=== PATIENT | female | born 1940 | race Caucasian/White ===

== ENCOUNTER → 2023-04-26 15:50 | Outpatient (REF) | payer OTHER, SELFPAY ==
[2023-04-26 16:34] LABS: % Basophils 0.4 % (0-2); % Eosinophils 2.7 % (0-6); % Immature Granulocytes 0.4 % (0-0.5); % Lymphocytes 5.8 % (20.5-51.1); % Monocytes 7.7 % (1.7-9.3); Absolute Eosinophils 0.3 10^3/uL (0-0.7); Absolute Lymphocytes 0.6 10^3/uL (1.2-3.4); Absolute Monocytes 0.7 10^3/uL (0.1-0.6); Hematocrit 26.4 % (37.0-47.0); Hemoglobin 8.5 g/dL (12.0-16.0); Mean Corp Hgb Conc. 32.2 g/dL (33.0-37.0); Mean Corpuscular Hgb 32.1 pg (27.0-31.0); Mean Corpuscular Volume 99.6 fL (81.0-99.0); Mean Platelet Volume 10.6 fL (7.4-10.4); Nucleated Red Blood Cells % 0 %; Platelet Count 238 10^3/uL (130-400); Red Blood Cell Count 2.65 10^6/uL (4.20-5.40); Red Cell Dist. Width 13.7 % (11.5-14.5); White Blood Cell Count 9.6 10^3/uL (4.8-10.8)
== END ==
LOC: REG 15:50
PROVIDERS: ATTENDING PHYSICIAN Radiology Radiation Oncology; FAMILY PHYSICIAN Internal Medicine
DX: C79.82 Secondary malignant neoplasm of genital organs (principal)
CPT/HCPCS: 36415; 85025

== ENCOUNTER 2024-05-08 20:05 | Inpatient (IN) | payer OTHER, SELFPAY ==
[2024-05-08 14:37] VITALS: BP 148/66
--- NOTE | 2024-05-08 15:38 | ED.GENMED ---
History of Present Illness
General
Chief Complaint: Dizziness
Source: patient and family (son at bedside)
Exam Limitations: none
Time Seen by Provider: 05/08/24 15:12
Nursing documentation reviewed up to this point in time: agreed with
History of Present Illness
History of Present Illness:
Patient is an 83-year-old female with history hypertension, hyperlipidemia, anal cancer presenting to the emergency department with son from outpatient office for evaluation of dizziness. History somewhat limited with patient due to hearing
impairment. However- patients son is at bedside who is assisting with history.
They state that she was at Dr. Sunshine's office just prior to arrival for an exam of potentially secondary malignancy of vulva when she experienced sudden onset severe dizziness with positional changes. This occurred 3 times in office. Patient
denies any associated nausea, vomiting, chest pain, shortness of breath, back pain. She denies any associated headache or visual changes. At this time�patient is asymptomatic and lying comfortably in bed.
Patient does note that this has happened over the past few months, as well but unable to give much detail.
I did speak with Dr. Sunshine on the phone who states it seems that she was having multiple 'near syncopal events.'Patient has been added onto the OR schedule tomorrow for an exam under anesthesia and he is requesting admission along with cardiac
evaluation/clearance while inpatient.
Review of Systems
Review of Systems
Allergies reviewed?: Yes
All Other Systems: ROS reviewed and negative except as documented in HPI and ROS
Phy Exam
Physical Exam
Physical Exam:
Vitals: Patient's vital signs are stable. Afebrile
General: Patient is well appearing, no acute distress. Nontoxic appearing
Skin: Warm and dry, no rashes or lesions
Head: Normocephalic, atraumatic
Eyes: Sclera nonicteric. EOMs intact. Pupils equal round and reactive to light bilaterally. No nystagmus.
Throat: Protecting airway
Neck: Normal ROM, no cervical spine tenderness, no meningismus
Cardiac: Regular rate and rhythm, no murmurs.
Pulm: Normal respiratory effort, no wheezes, rales, rhonchi heard on exam.
Abdomen: Abdomen soft and nontender.
Extremities: No evidence of cyanosis or edema. Strength 5 out of 5 in upper and lower extremities
Neuro: AAOx3. Fluid speech. No facial droop or asymmetry. Normal [id number]. Sensation fully intact
Psychiatric: Normal affect.
Course
Orders/Labs/Results
Orders:
Orders
05/08/24 15:34
CT Head W/o Iv Contrast Urgent
Comment:
Reason For Exam: acute onset dizziness
05/08/24 15:35
Electrocardiogram (*1) Urgent
Reason for Study: Vertigo / Dizzy
EKG- Treatment ONCE
05/08/24 15:46
Cardiac Monitoring- Treatment ONCE
05/08/24 15:48
Comprehensive Metabolic Panel Urgent
Free T4 Urgent
TSH Reflex To Free T4 Urgent
05/08/24 15:49
Complete Blood Count/With Diff Urgent
05/08/24 15:59
0.9% Sodium Chloride 1000 ml [Nss] 1,000 ml IV BOLUS
05/08/24 17:12
CT Chest/abd/pel W Iv Cont Urgent
Comment: per Dr. Sunshine
Reason For Exam: Pre-op planning
Iohexol [Omnipaque] See Protocol PO NOW STA
05/08/24 19:44
Admit/Transfer Patient As Directed
Co-Sign Provider:
Level of Care: Inpatient admission
Assign to:: Telemetry
Physician / Group: Robert
Diagnosis: Dizziness, Vulvar Cancer
Reason for Telemetry: Syncope
Date to Stop Telemetry: 05/10/24
Time to Stop Telemetry: 11:00
Reason for Hospitalization: Dizziness, Vulvar Cancer
Expected length of stay greater than two midnights?: Yes
ELOS- Estimated Length of Stay in days: 4
I certify the patient meets the requirements for IP care: Yes
PRN Pain Medication Management As Directed
May give lesser potent ordered pain med per pt: Yes
preference::
Protocol:: Medication orders for pain may be administered in a
manner that supports deferring to patient preference
when the pt is:
- Requesting an ordered lesser potent pain medication.
Least to most potent pain medications are defined
as: acetaminophen < NSAID < tramadol < opioids
(morphine, oxycodone, hydromorphone).
- Requesting a lesser dose of the same medication IF
ORDERED.
- Requesting a less intrusive route of administration
if both routes are prescribed by the provider (PO <
IV).
05/08/24 19:46
Code Status As Directed
Resuscitation Status: Full Code
05/08/24 22:25
Acetaminophen [Tylenol] 650 mg PO Q4HPRN PRN
05/08/24 22:25
CARDIOLOGY CONSULT Routine
Consulting Provider: Christian Soliman
Was physician already notified: Yes
Reason for consult: Pre-Op Eval, Near Syncope
[employer] Oncology Consult Routine
Consulting Provider: Sean Sunshine
Was physician already notified: Yes
Reason for consult: Vulvar Cancer
Activity As Directed
Activity Level: Ambulate
With Assistance
EKG with chest pain [ECG as needed] As Directed
ECG as needed for:: Chest Pain
I/O [Intake/ Output] As Directed
Frequency: Per unit guidelines
Orthostatic Vital Signs As Directed
Orthostatic VS Frequency: BID
Pneumatic Compression Sleeves As Directed
Type: Knee high
Vital Signs As Directed
Frequency: Per unit guidelines
Weight As Directed
Frequency: Daily
Oxygen Therapy [O2 Therapy] [RESP] Routine
Titrate/Wean O2 to maintain O2 sat greater than (%): 94
Ot Eval And Treat Routine
PT Consult [Pt Eval And Treat] Routine
Activity Level: Ambulate
With Assistance
DX Deep Vein Thrombosis Video Routine
05/09/24 Breakfast
NPO
Allow oral meds: Yes
Allow clear liquids: Sips of Clears
NPO for procedure after (time): Midnight
Basic Metabolic Panel IN AM
Complete Blood Count/No Diff IN AM
PTT IN AM
Prothrombin Time IN AM
Levothyroxine [Synthroid] 100 mcg PO DAILY@0600
05/09/24 08:00
Atorvastatin [Lipitor] 40 mg PO DAILY
Losartan [Cozaar] 100 mg PO DAILY
05/10/24 11:00
DC Protocol for Telemetry ONCE
Abnormal Lab Results
05/08/24 05/08/24
15:48 15:49
RBC 3.57 L 10^6/uL
(4.20-5.40)
Hgb 11.4 L g/dL
(12.0-16.0)
Hct 35.6 L %
(37.0-47.0)
MCV 99.7 H fL
(81.0-99.0)
MCH 31.9 H pg
(27.0-31.0)
MCHC 32.0 L g/dL
(33.0-37.0)
MPV 10.9 H fL
(7.4-10.4)
Absolute Lymphs (auto) 0.6 L 10^3/uL
(1.2-3.4)
Neutrophils % 82.2 H %
(42.2-75.2)
Lymphocytes % 7.7 L %
(20.5-51.1)
Glucose 115 H mg/dl
(70-99)
TSH (Reflex) 24.30 H uIU/ml
(0.47-4.68)
Free T4 0.33 L ng/dl
(0.78-2.19)
05/08/24 15:49
05/08/24 15:48
Vital Signs
Initial and Last Documented VS:
Initial Vital Signs
Temp Pulse Resp BP Pulse Ox
97.7 F 82 20 148/66 100
05/08/24 14:37 05/08/24 14:37 05/08/24 14:37 05/08/24 14:37 05/08/24 14:37
Last Documented Vital Signs
Temp Pulse Resp BP Pulse Ox
98.2 F 67 20 159/77 100
05/08/24 22:43 05/08/24 22:43 05/08/24 22:43 05/08/24 22:43 05/08/24 22:43
MDM/Problems Addressed
Differential Diagnosis Includes:
Not limited to: BPPV, orthostatic hypotension, electrolyte imbalance, cardiac arrhythmia, CVA, etc.
MDM/Problems Addressed:
83-year-old female presenting with postural dizziness and near syncope while at doctor's office outpatient. Patient appears asymptomatic on initial evaluation. She denies any syncopal event or associated chest pain, shortness of breath, headache.
Patient is mildly hypertensive, otherwise stable vital signs. Physical exam as above. She is very well and comfortable appearing. Cardio/pulmonary assessment unremarkable. She has normal neurologic examination. However�she was unable to sit up
without significant dizziness. Symptoms seem very positional in nature. Will obtain labs, EKG, head CT. Will give IV fluids. Will contact Dr. Sunshine for further input on what occurred at office.
Update: Did speak with Dr. Sunshine on phone. He reports multiple episodes of dizziness with positional changes while in office. Patient being worked up for possible secondary malignancy of vulva with history of anal cancer. Dr. Sunshine would like
patient to be admitted overnight tonight with cardiology clearance and plan for OR tomorrow for exam under anesthesia. Will plan for admission pending workup in ED.
Update: EKG without acute changes. Labs reviewed. TSH elevated with low free T4. On discussion with patient and family�it appears she does have history of hypothyroidism and is unsure if she has been taking her medication. Otherwise labs without
clinically significant abnormalities headache without acute findings. Was able to get patient up and walking after liter of fluids with significant improvement in symptoms, although she does still remain mildly unsteady on her feet.
Ultimately�suspect orthostatic dizziness versus vasovagal symptoms at this time. Plan for admission for further workup with [employer]/ONC and OR tomorrow for exam under anesthesia. Patient seen with attending physician.
Chronic conditions affecting care:
Hypertension, Hyperlipidemia, history of anal cancer
Acute Exacerbation and/or Progression of Chronic Illness:
Acutely hypertensive
*Radiology
Radiology exam reviewed: preliminary read by ED provider and radiology read reviewed
*Pulse Oximetry
Patient hypoxic: no
*EKG
Interpreted by ED Provider?: Yes
Interpretation: abnormal
Comparison EKG: no changes
Heart Rate: 71
Rate: normal
Rhythm: sinus
[place]: left axis deviation
Interval: normal interval
QRS Pattern: low voltage
Ischemia: no ischemia
*Critical Care Note
Total Time (30-74mins, 75-104mins- exclusive of procedures): Not Applicable
Patient Management
Discussion with other providers: Hospitalist and [place] (Case discussed w/ community center director/onc Dr. Neil)
Escalation/DeEscalation of care consider admission/obs:
Admit�plan for OR tomorrow for exam under anesthesia
ED Attending Note
-
Portions of this chart may have been created with voice recognition software.� Occasional wrong word or��sound alike� substitutions may have occurred due to the inherent limitations of voice recognition software.
Discharge Plan
Departure
Patient Disposition: Admit
Date of Disposition: 05/08/24
Time of Disposition: 18:36
Presentation/result/management discussed w/ accepting MD/DO: Hospitalist
Discharge Problem:
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
Interventions
Interventions:
*Risk Screen - Suicide Last Done: 05/08/24 14:44
*General Assessment Last Done: 05/08/24 14:37
*Neglect/Abuse Screening Last Done: 05/08/24 14:44
*ED- Fall Risk Assessment Last Done: 05/08/24 17:00
*ED COVID-19 Vaccine History Last Done: 05/08/24 19:00
*Nursing Disposition Last Done: 05/08/24 22:31
ED- Neurological Assessment Last Done: 05/08/24 17:00
ED Swallowing Screen Last Done: 05/08/24 17:00
Discharge Date and Time
Discharge Date/Time: 05/08/24 22:32
[2024-05-08 15:49] VITALS: BP 135/69
[2024-05-08 15:55] VITALS: BP 142/69
[2024-05-08 16:00] VITALS: BP 131/61
[2024-05-08 16:07] LABS: % Basophils 0.5 % (0-2); % Eosinophils 1.9 % (0-6); % Immature Granulocytes 0.5 % (0-0.5); % Lymphocytes 7.7 % (20.5-51.1); % Monocytes 7.2 % (1.7-9.3); % Neutrophils 82.2 % (42.2-75.2); Absolute Eosinophils 0.2 10^3/uL (0-0.7); Absolute Lymphocytes 0.6 10^3/uL (1.2-3.4); Absolute Monocytes 0.6 10^3/uL (0.1-0.6); Absolute Neutrophils 6.5 10^3/uL (1.4-6.5); Hematocrit 35.6 % (37.0-47.0); Hemoglobin 11.4 g/dL (12.0-16.0); Mean Corpuscular Hgb 31.9 pg (27.0-31.0); Mean Corpuscular Volume 99.7 fL (81.0-99.0); Mean Platelet Volume 10.9 fL (7.4-10.4); Nucleated Red Blood Cells % 0 %; Platelet Count 189 10^3/uL (130-400); Red Blood Cell Count 3.57 10^6/uL (4.20-5.40); Red Cell Dist. Width 14.5 % (11.5-14.5); White Blood Cell Count 7.9 10^3/uL (4.8-10.8)
[2024-05-08 16:12] LABS: Glucose - Point of Care 82 mg/dl (70-99)
[2024-05-08] MEDS: NSS 1000 IV (16:17)
[2024-05-08 16:22] LABS: ALT (SGPT) 14 U/L (0-35); AST (SGOT) 19 U/L (14-36); Albumin 3.7 g/dl (3.5-5.0); Alkaline Phosphatase 101 U/L (38-126); Blood Urea Nitrogen 16 mg/dl (7-17); Carbon Dioxide 27 mmol/L (22-30); Chloride 107 mmol/L (98-107); Glucose 115 mg/dl (70-99); Sodium 144 mmol/L (135-145); Total Bilirubin 0.7 mg/dl (0.2-1.3); Total Protein 6.3 g/dl (6.3-8.2); eGFR > 60.00
[2024-05-08 17:21] LABS: Free T4 0.33 ng/dl (0.78-2.19)
[2024-05-08] MEDS: OMNIPAQUE 50 ML PO (17:36)
--- NOTE | 2024-05-08 18:27 | W.CON.GYNONC ---
Chief Complaint
-
vulvar pain/mass
History of Present Illness
This�is�an�83�year�old�[id number]�who�is�sent�to�me�by�Dr.�Savanah�in�colorectal�surgery.�She�has�a�prior�history�of�squamous
cell�carcinoma�of�the�anus.�Patient�has�been�experiencing�pain�involving�the�vulvar�region,�in�addition�she�has�been�having
discharge.�Patient�was�seen�by�Dr.�Adan�in�February�202�where�exam�revealed�areas�of�induration�extending�to�the�anus�with
multiple�foci�of�skin�breakdown�and�ulceration.�She�was�sent�to�colorectal�surgery�for�evaluation.�They�noted�presence�of�a�lesion that�was�concerning�for�malignancy�and�the�patient�is�sent�to�us�for�further�evaluation
Oncology�History: In��late��November��2018��she��was��evaluated��at[facility],�and��biopsy��reportedly��showed��squamous��cell�
carcinoma��consistent��with��anal��margin��carcinoma.�� (I��do��not��have��those��results��to�review��at��this��time,��though��the��pathology��report��has��been��requested.)��
She��was��referred� to��plastic��surgery,��who��referred��her��to�colorectal��surgery.��She��met��with��Dr.��Savanah,��who��performed��colonoscopy��on�
.��This��revealed��a��left��anterior��anal�margin��mass,��diverticulosis��in��the��sigmoid��colon,��a��3��mm��polyp��in�
the��ascending��colon��and��a��3��mm��polyp��in��the��descending��colon.�Both��polyps��were��tubular��adenomas.��She��underwent�
staging��PET��scan��along��with��diagnostic��contrastinduced��CT��scans,��revealing�fairly��intense��radiotracer��accumulation��in��the�
left��perianal��soft��tissue,��and��a��mildly��FDG��avid��presumed��lymph��node��in��the��mesentery�of��the��left��abdomen,��which�
would��be��a��fairly��unusual��site��for��metastasis.�Her��case��was��discussed��at��our��multidisciplinary��cancer��conference.��A�
decision��was��made��that��surgery��was��likely��an��inferior��option�to��combined��modality��chemotherapy��and��radiation��therapy.�
She��completed��chemo��radiation��in��May��2020.�Recall��that��she��underwent��excisional��surgical��biopsy��of��a��mesenteric� mass��in��[place]��2022��and��pathology��revealed��a��benign�fibroinflammatory��process,��consistent��with��mesenteric�
panniculitis/retroperitoneal��fibrosis. In�February�2024�patient�was�sent�to�Dr.�Smith,�on�his�exam�he�notes�a�7�cm�right�vulvar�exophytic�lesion�with�areas�of necrosis�and�bleeding,�this�does�not�occlude�the�urethra.
Patient�had�already�opted�for�palliative�radiation�therapy.�Vulvar�biopsy�was�done�at[facility],�a�1�x�1�cm�area�was
biopsied�which�revealed�invasive�moderately�differentiated�squamous�cell�carcinoma.�For�this�the�patient�received�3000�cGy�over�10 fraction�starting�March�1.
Past�medical�history�significant�for�anemia,�cancer�of�anus,�hyperlipidemia,�hypertension
Past�surgical�history�includes�appendectomy,�cataract�extraction,��section,�toe�surgery,�tonsillectomy,�partial�vulvectomy
Allergies�include�KARINA�inhibitors�causing�cough,�hydrocodone,�polyethylene�glycol,�sulfa,�sulfur,�triamcinolone,�azithromycin, nystatin,�penicillins
Social�history�patient�is�,�patient�denies�tobacco�use�vaping�drug�use.
Meds:
Calcium�with�Vit�D dose�unknown�1 p.o.�twice�a�day (BID)
Fish�Oil�1,000�mg�(120�mg�180�mg)�capsule 4�p.o.�q.�day
furosemide�20�mg�tablet 1/2�p.o.�q.�day
Lipitor�40�mg�tablet 1�p.o.�q.�day
losartan�100�mg�tablet 1�p.o.�q.�day
multivitamin�oral 1�p.o.�q.�day
[place]�3�350�mg�235�mg�90�mg�597�mg capsule,delayed�release 4�p.o.�q.�day
Synthroid�100�mcg�tablet 1�p.o.�q.�day
Vitamin�B�12�1,000�mcg�tablet 1�p.o.�q.�day
Vitamin�C�500�mg�tablet 1�p.o.�q.�day
Vitamin�D3�50�mcg�(2,000�unit)�capsule 1�p.o.�q.�day
vitamin�E�400�unit�capsule 1�p.o.�q.�day
Medical History
Allergies
Allergies reflect [facility]
KARINA Inhibitors Allergy (Verified 05/08/24 14:41)
cough
apple Allergy (Verified 05/08/24 14:41)
Hives to Apple Cider
azithromycin [From Zithromax Z-Yony] Allergy (Verified 05/08/24 14:41)
Pharmacy to Review
hydrocodone [From Vicodin] Allergy (Verified 05/08/24 14:41)
GI problems
nystatin Allergy (Verified 05/08/24 14:41)
Rash
Penicillins Allergy (Verified 05/08/24 14:41)
Rash
perfume Allergy (Verified 05/08/24 14:41)
Anaphylaxis to Bounce Dryer Sheets
Sulfa (Sulfonamide Antibiotics) Allergy (Verified 05/08/24 14:41)
Hives
triamcinolone Allergy (Verified 05/08/24 14:41)
Rash
Physical Exam
Vital Signs / I&O
Vitals
Temp Pulse Resp BP Pulse Ox
97.7 F 77 23 142/69 100
05/08/24 14:37 05/08/24 15:55 05/08/24 15:55 05/08/24 15:55 05/08/24 15:55
Physical Exam
Pelvic�Examination: External:�There�is�evidence�of�tumor�involving�clitoris�at�least�3�cm�in�size�with�extension�along�right�and�left�labia�majora�extending
to�vaginal�introitus.�It�is�unclear�whether�the�urethra�or�vagina�is�involved,�exam�is�very�painful�for�the�patient�and�had�to�be terminated�in�the�office.�The�tumor�has�a�odor�associated�with�it.�It�is�friable�and�can�bleed�upon�touching.
Vagina:�Unable�to�examine
Cervix:�Unable�to�examine
Uterus:�Did�not�exam
Adnexa:�Did�not�examine
RVE:�On�visual�exam�of�the�anus�I�did�not�see�any�evidence�of�masses,�there�is�radiation�changes�surrounding�the�anal�canal
General:�Well�developed,�well�nourished�patient.Chronically�ill�appearing.�
Patient�appears�older�than�state�age.
Neck:�No�thyromegaly.�No�cervical�lymphadenopathy.
Lungs:�Clear�to�auscultation.�Good�air�movement�bilaterally.
Cardiac:�Regular�rate.�Regular�rhythm.�No�murmurs�appreciated.
Abdomen:�Abdomen�is�soft.�Non�tender�to�palpation.�Non�distended.
Extremities:�No�edema. Hematologic/Lymphatic:�No�palpable�lymphadenopathy.
Musculoskeletal:�Normal�range�of�motion.�Strength�and�Tone�are�normal.
Skin:Non�jaundiced.�No�petechia.�No�purpura.
Neurologic:�Speech�is�fluent.�Normal�gait�and�station.�Cranial�nerves�intact.
Results
-
05/08/24 15:49
05/08/24 15:48
[facility]
[address] [place] [id number]
[phone]
Patient Name: SANGITA GUSMAN
: 1940
Unit Number: [id number]
Age/Sex: 83/F
Patient
Location: PET
Order Provider: Stephani Arellano MD
Exam Service Date: 04/05/24

PET Scan Report
SignedOrder #:[id number]
Exams: PT Pet Wbi W/CT Skull-thigh
CPT: 11964
Procedure: PET/CT SKULL-THIGH
IMPRESSION:
1. Large thick band of RESIDUAL MALIGNANCY in the INFERIOR PERINEUM extending from the vagina to the anus which appears increased in AP dimension, but decreased in FDG uptake compared with the 03/15/2023 examination.
2. No evidence for new distant FDG avid metastatic disease.
CLINICAL INDICATION: 83-year-old woman with anal cancer (treated with chemotherapy and radiation therapy in 2019) and vulvar cancer (treated with radiation therapy in April 2023). The patient is undergoing a PET/CT examination for restaging
(subsequent treatment strategy).
TECHNIQUE: A PET/CT examination was performed following the intravenous injection of 10.4 mCi F-18 FDG in the right antecubital fossa at 11:08 AM on 04/05/2024. Images were acquired from the level of the skull base to the level of the mid thighs. The
blood glucose level at the time of injection measured 81 mg/dL. The radiopharmaceutical uptake time measures 67 minutes. Axial, sagittal, and coronal fused reformatted images were obtained. Low-dose CT images were acquired for attenuation correction
purposes only. Automatic exposure control radiation dose reduction technology was utilized.
SUV Measurement Type: SUVmax
Normalization Method: BMI
COMPARISON: Comparison is made with a prior PET/CT examination performed 03/15/2023.
FINDINGS:
HEAD and NECK:
There is no abnormal increased FDG uptake in the neck to suggest FDG avid metastatic disease.
CHEST:
MEDIASTINUM: Mediastinal Blood Pool Reference Background Measurement: SUV max 2.6
The heart is mildly enlarged. There is a large amount of calcification in the mitral annulus. There is mild calcification in the aortic valve. There is moderate calcific atherosclerotic plaque in the coronary arteries. There is severe calcific
atherosclerotic plaque in the thoracic aorta. There is no pericardial effusion. There is no abnormal increased FDG uptake in mediastinal, hilar, supraclavicular, or axillary lymph nodes to suggest FDG avid dutch metastatic disease.
LUNGS: There is no abnormal increased FDG uptake in the lungs to suggest FDG avid pulmonary metastatic disease. There is a mild amount of subpleural scarring and subsegmental atelectasis in the basilar segments of the left lower lobe. There is no
pleural effusion or pneumothorax.
ABDOMEN and PELVIS: Liver Reference Background Measurement: SUV max 3.6
There is no abnormal increased FDG uptake in the liver. There is severe calcific atherosclerotic plaque in the abdominal aorta and common iliac arteries. There is very severe calcific atherosclerotic plaque in the superior mesenteric artery. There
is severe calcific atherosclerotic plaque in both proximal renal arteries. There are multiple parapelvic cysts in the left kidney. There is mild bilateral renal cortical volume loss. There is a 5 mm nonobstructing intrarenal calculus in the left
kidney.
There is a 2.2 x 4.4 cm partially calcified mass in the small bowel mesentery measuring SUV max 2.8 (previously SUV max 2.9). There is a moderate amount of fecal material in the cecum, ascending colon, transverse colon, and descending colon. There
is severe diverticulosis throughout the sigmoid colon. There is a moderate to large amount of fecal material in the rectum.
There is a 4.2 x 5.1 cm cyst in the right ovary measuring simple Hounsfield units in attenuation. There is no peritoneal fluid in the pelvis.
There is a large thick band of malignant soft tissue in the inferior perineum extending from the vagina to the anus measuring 9.9 x 2.3 x 4.6 cm in AP, transverse, and craniocaudal dimensions and SUV max 17.0 (previously SUV max 31.3).
SKELETON:
The bones appear severely osteoporotic. There is no abnormal increased FDG uptake in the skeleton to suggest FDG avid osseous metastatic disease. There is a severely exaggerated lower thoracic kyphosis. There is severe discogenic degenerative
disease at T11/T12, T12/L1, L1/L2, and L2/L3. There is severe discogenic degenerative disease at L5/S1.
In accordance with Act 112, known as the Patient Test Results Information Act, a letter will be sent to the patient which notifies the patient that a significant abnormality may exist. The letter will be sent within approximately 20 days of the
date the results were sent to the ordering health care practitioner.
Electronically signed by Jones Blandon MD, 04/05/2024 5:28 PM
Dictated By: Barber CORRAL,Jones Dozier.
Dictated Date & Time: 04/05/24 0459
Impression / Plan
-
During the visit today the patient had multiple episodes of syncope in the office, she never lost consciousness but she was unable
to stand up and unfortunately this necessitated transfer to a wheelchair and I send her to the emergency room for further evaluation.
During my brief examination I note that the patient has an extensive tumor involving bilateral labia and clitoris that is consistent with
squamous cell carcinoma. It is unclear to me as whether the vagina is involved with this. Patient requires an exam under anesthesia
for determination of next step for treatment
She has a very poor performance status based on evaluation today, we need to ask cardiology for a more formal evaluation including
ECG, echocardiogram.
At the very least she will need to undergo complete radical vulvectomy and will require bilateral gracilis flaps to fill the defect. If the
disease extends in the vagina or involve the urethra she may require exenterative procedure, i.e. removal of bladder urethra vagina
uterus cervix rectum with colostomy and urostomy. I am not certain that at her age of 83 with her current performance status she
can undergo the surgery this would require a very detailed conversation.
My proposal is to do an exam under anesthesia to gain a better appreciation of the extent of disease and document recurrent
disease with biopsies.
We can have further conversation about next steps after the biopsies are completed.
Keep patient NPO
Obtain CT CAP with IV and po contrast
Cardiology consult for pre op clearance
--- NOTE | 2024-05-08 19:54 | HPS.HSE ---
Family Physician
-
Family Physician: Tosin Moore
Chief Complaint
-
Dizziness
History of Present Illness
Patient is an 83y F with PMH significant for squamous cell carcinoma of the anus who presents to ED for evaluation of dizziness. Patient was being evaluated at PAPER REWINDER OPERATOR-Onc office today for vulvar inflammation / lesions. She had significant
discomfort during the exam and complained of dizziness / was yelling out in pain. Patient did not lose consciousness. She did not fall or suffer any injury or trauma. Patient was sent to the ED for further evaluation.
Patient has been increasingly confused over the past several months according to her daughter. She manages her own medications and family is not at all certain that she has been taking them as prescribed.
In the ED, patient has poor recall of events at the office today which led to her presentation. She denies any pain, dizziness, chest pain, dyspnea, etc at present.
Medical History
Past Medical History
Past Medical History: Reports Other
Additional Past Medical History:
Squamous Cell Carcinoma (Anus) - Chemo, XRT 2019, XRT 2023
Hypothyroidism
Hypertension
Senile Dementia
Past Surgical History: Reports Other
Additional Past Surgical History:
T&A
Cataracts
Tubal Ligation
Appendectomy
Pilonidal Cyst
Ex Lap / Resection of Mesenteric Mass (benign) - 2021
Social History
Tobacco: Non-smoker
Alcohol: None
Drug: None
Living: With Family (son)
Family History
Family History: Not pertinent
Allergies / Home Medications
Allergies reflects when Allergies were last updated in [facility].
Home Medications with original date entered in [facility]
Allergy/Medication List:
Allergies
Allergy/AdvReac Type Severity Reaction Status Date / Time
KARINA Inhibitors Allergy cough Verified 05/08/24 14:41
apple Allergy Hives to Verified 05/08/24 14:41
Apple Cider
azithromycin Allergy Pharmacy Verified 05/08/24 14:41
[From Zithromax Z-Yony] to Review
hydrocodone [From Vicodin] Allergy GI problems Verified 05/08/24 14:41
nystatin Allergy Rash Verified 05/08/24 14:41
Penicillins Allergy Rash Verified 05/08/24 14:41
perfume Allergy Anaphylaxis Verified 05/08/24 14:41
to Bounce
Dryer
Sheets
Sulfa (Sulfonamide Allergy Hives Verified 05/08/24 14:41
Antibiotics)
triamcinolone Allergy Rash Verified 05/08/24 14:41
Home Medications
aspirin 81 mg tablet,delayed release (Adult Aspirin Regimen) 81 mg PO MOWEFR Blood clot prevention/tx 05/10/19
losartan 100 mg tablet (Cozaar) 100 mg PO DAILY Blood pressure 05/10/19
cyanocobalamin (vitamin B-12) 1,000 mcg tablet 1,000 mcg PO DAILY Supplement 03/04/20
cholecalciferol (vitamin D3) 50 mcg (2,000 unit) capsule (Vitamin D3) 50 mcg PO DAILY Supplement 08/28/21
ascorbic acid (vitamin C) 500 mg tablet (Vitamin C) 500 mg PO DAILY Supplement 10/16/21
atorvastatin 40 mg tablet (Lipitor) 40 mg PO DAILY High cholesterol 10/16/21
levothyroxine 100 mcg tablet (Synthroid) 100 mcg PO DAILY Thyroid 10/16/21
vitamin E 268 mg (400 unit) capsule 268 mg PO DAILY Supplement ##0 10/16/21
therapeutic multivitamin 1 tab PO DAILY 05/08/24
Review of Systems
-
History Source: Patient
A 12 point ROS was completed and negative except as noted: Yes
Constitutional: Denies Fever or Chills
EENT: Denies Sore Throat
Respiratory: Denies Cough or Trouble Breathing
Cardiac: Denies Chest Pain, Palpitations or Syncope
Abdomen/GI: Denies Abdominal Pain, Nausea, Vomiting or Diarrhea
: Reports Other (Vulvar pain, discharge.)
Musculoskeletal: Denies Joint Pain or Edema
Neurological: Reports Dizzy; Denies Headache
Psych: Denies Depression or Anxiety
Physical Exam
Vital Signs
Vital Signs
Temp Pulse Resp BP Pulse Ox
97.7 F 71 22 131/61 98
05/08/24 14:37 05/08/24 19:00 05/08/24 19:00 05/08/24 16:00 05/08/24 16:45
Physical Exam
General: Other (83y F in no acute distress.)
HEENT: Moist mucous membranes and PERRLA
Respiratory: Clear; No Wheezes, Rales or Rhonchi
Cardiac: S1/S2 and Regular Rhythm; No Murmur
GI: Soft, Non Tender, Non Distended and Normal Bowel Sounds
Musculoskeletal: No Clubbing, No Cyanosis and No Edema
Neuro: Awake and Alert; No Oriented
Laboratory Results
-
05/08/24 15:49
05/08/24 15:48
Laboratory Results
Total Bilirubin 0.7 mg/dl (0.2-1.3) 05/08/24 15:48
AST 19 U/L (14-36) 05/08/24 15:48
ALT 14 U/L (0-35) 05/08/24 15:48
Alkaline Phosphatase 101 U/L (38-126) 05/08/24 15:48
Impression/Plan
-
A/P: Patient is an 83y F with PMH significant for squamous cell cancer of the anus who presents to ED for evaluation of dizziness at physician's office this afternoon.
Near-Syncope
- Admit for further evaluation and treatment.
- Suspect vasovagal episodes due to pain.
- EKG / tele unremarkable in the ED.
- Asymptomatic at present.
- PT / OT eval for gait safety / vestibular assessment.
- PAPER REWINDER OPERATOR-Onc requested Cardiology evaluation for pre-op assessment.
- Monitor for any recurrent symptoms.
Squamous Cell Cancer
Vulvar Lesion
- Patient initially diagnosed in 2019 and underwent chemo and XRT.
- Had mesenteric mass resected in 2021 which was ultimately benign.
- Repeat XRT in 2023 for recurrence.
- Now with inflamed, friable vulvar lesions.
- PAPER REWINDER OPERATOR-Onc eval as noted above.
- CT this evening for further evaluation.
- Plan for exam under anesthesia in the AM and possible additional surgery later in the week.
Benign Hypertension
- Stable. Continue losartan with holding parameters.
Hypothyroidism
- TFTs suggest under-replacement.
- Given concerns regarding med compliance - not clear that patient requires dose adjustment.
- Resume usual 100mcg dose for now.
- Repeat TFTs in 4-6 weeks.
Memory Impairment
- Family reports gradual cognitive decline over the past few months.
- Concerns re: med compliance, eating / drinking, etc.
- Follow for changes during stay and consider placement / home assistance options at discharge.
DVT Prophylaxis: SCDs
Code Status: Full
[2024-05-08 22:00] VITALS: BP 141/60
--- NOTE | 2024-05-08 22:40 | PTCARENOTE ---
Rec'd from ED awake, alert, & pleasant. Forgetful & disoriented to place and time. Cooperative. Able to walk from hallway to bed w/assist of 1. Some back pain upon sitting up, which daughter states is chronic. Bed alarm applied to bed. Pt instructed
on use of call woodard and states understanding, however needs reminders of location of same.
[2024-05-08 22:42] VITALS: BMI 31.4
[2024-05-08 22:43] VITALS: BP 159/77
[2024-05-09] VITALS (9 sets, daily range): BP systolic 125–158; BP diastolic 62–106; BMI 31.5
[2024-05-09] MEDS: LR 1000 IV ×2 (00:01→09:02)
[2024-05-09] MEDS: SYNTHROID 100 MCG PO (04:02)
[2024-05-09 06:49] LABS: Hematocrit 33.3 % (37.0-47.0); Hemoglobin 10.9 g/dL (12.0-16.0); Mean Corp Hgb Conc. 32.7 g/dL (33.0-37.0); Mean Corpuscular Hgb 31.9 pg (27.0-31.0); Mean Corpuscular Volume 97.4 fL (81.0-99.0); Mean Platelet Volume 11.2 fL (7.4-10.4); Platelet Count 175 10^3/uL (130-400); Red Blood Cell Count 3.42 10^6/uL (4.20-5.40); Red Cell Dist. Width 14.4 % (11.5-14.5); White Blood Cell Count 8.5 10^3/uL (4.8-10.8)
[2024-05-09 06:54] LABS: INR 1.08; PT 14.4 Sec (11.4-14.6)
[2024-05-09 07:08] LABS: Blood Urea Nitrogen 12 mg/dl (7-17); Calcium 8.7 mg/dl (8.4-10.2); Carbon Dioxide 26 mmol/L (22-30); Chloride 108 mmol/L (98-107); Estimated Creatinine Clearance 53 ml/min; Glucose 81 mg/dl (70-99); Potassium 4.2 mmol/L (3.5-5.1); Sodium 140 mmol/L (135-145); eGFR > 60.00
--- NOTE | 2024-05-09 08:44 | W.PN.HOSP.TC ---
Today's Communication/Plan
-
see PN
Assessment / Plan
Assessment / Plan
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
BELT BUCKLE MAKER exam under anasthesia. No LOC reported, but dizziness while standing.
A/P:
#Valvular squamous cell CA
Needs additional examination under anasthesia
Oncology BELT BUCKLE MAKER consult
Needs cardiology eval preOP
#Dizziness
Telemetry with no significant arrhythmia
PT/OT
Echo
Head CT unremarkable
carotid US
EKG with no TWI. poor R progression
#anemia
anemia w/u
#HLD
#Essential HTN
#ASCVD
#Hypothyroidism
#Dementia
TSH significantly elevated, but questionable compliance as per admission note, reasonable to increase Synthroid to 112mcg and repeat TFT in 2-3 weeks
cont rest of meds
Furosemide on hold on admission - follow volume status, stop IVF
Unclear why ASA three time per week
DVT ppx hep
Full code
I have spent at least 58min reviewing chart, test results, communication with consultantants and providing direct patient care
Anticipated Discharge: 24 - 48 hours
Subjective/Interval History
-
Date of Service: May 09, 2024
Objective Data
-
Labs:
Laboratory Results
05/09/24
05:50
WBC 8.5
Hgb 10.9 L
Hct 33.3 L
Plt Count 175
PT 14.4
INR 1.08
APTT 32.0
Sodium 140
Potassium 4.2
Chloride 108 H
Carbon Dioxide 26
BUN 12
Creatinine 0.6
Glucose 81
Calcium 8.7
Vital Signs:
Vital Signs
Temp Pulse Resp BP Pulse Ox
97.8 F 71 18 146/77 99
05/09/24 07:42 05/09/24 07:42 05/09/24 07:42 05/09/24 07:42 05/09/24 07:42
I&O
05/08/24 05/09/24 05/10/24
06:59 06:59 06:59
Intake Total 650 / 650
Balance 650 / 650
Review of Systems
-
Unable to obtain full review of systems at this time due to: Dementia
History Source: Patient
All other systems: Reviewed and negative
Physical Exam
-
General: No Apparent Distress
HEENT: Normocephalic
Respiratory: Clear to Auscultation
Cardiac: Regular Rhythm
GI: Soft, Nontender and Nondistended
Musculoskeletal: No Clubbing, No Cyanosis and No Edema
Neuro: Awake, Alert, Oriented and AO x 3
Psych: Calm
[2024-05-09] MEDS: LIPITOR 40 MG PO (09:02)
[2024-05-09] MEDS: COZAAR 100 MG PO (09:02)
[2024-05-09 09:09] LABS: Reticulocyte Count 1.4 % (0.4-2.8)
--- NOTE | 2024-05-09 09:14 | W.PN.GYNONC ---
Today's Communication
-
na
Impression / Plan
-
During my brief examination in office which was poorly tolerated I note that the patient has an extensive tumor involving bilateral labia and clitoris that is consistent with
squamous cell carcinoma. It is unclear to me as whether the vagina is involved with this. It is also difficult to state with certainty if she has anal or vulvar cancer recurrence.
Patient requires an exam under anesthesia for determination of next step for treatment. this is scheduled for this pm in the OR. I will try to get Dr Pavon and a member of urology to be present.
planning for EUA, cysto procto and biopsies of vulva.
My impression so far is that She has a very poor performance status
I met and spoke to our cardiology colleagues, I have asked for a more formal evaluation including ECG, echocardiogram to assess if she can undergo a more extensive radical resection and reconstruction.
At the very least she will need to undergo complete radical vulvectomy and will require bilateral gracilis flaps to fill the defect. If the disease extends in the vagina or involve the urethra she may require exenterative procedure, i.e. removal of
bladder urethra vagina, uterus cervix rectum with colostomy and urostomy. I am not certain that at her age of 83 with her current performance status she can undergo the surgery this would require a very detailed conversation.
In conversation with Dr Pavon, an MRI of pelvis is also helpful to assess the involvement of bladder, rectum, groin lymphnodes, etc. i ordered this.
Sean Sunshine MD
Subjective / Interval History
-
HD 2
she is c/o inability to sleep overnight.
somewhat confused stating for 2 nights they have kept the lights on and she cannot sleep.
she remembered seeing me in office but had some difficulty remembering the referring doctor (Savanah)
no further issues related to near syncope but also has not been out of bed.
Objective Data
-
Lab Results:
05/09/24 05:50
05/09/24 05:50
[facility]
[address] [place] [address]
[phone]
Patient Name: SANGITA GUSMAN
: 1940
Unit Number: [id number]
Age/Sex: 83/F
Patient
Location: EMR
Order Provider: Francy Kaminski PA-C
Exam Service Date: 05/08/24

Diagnostic Imaging Report
SignedOrder #:[id number]
Exams: CT Head W/o Iv Contrast
CPT: 66156
Scanning parameters: CT of the head without intravenous contrast material was obtained. Automated exposure control was used.
Comparison examination: None
INDICATION: Acute onset dizziness
FINDINGS:
There are no acute abnormalities.
There is no intracranial hemorrhage.
There is no edema or mass effect to suggest neoplasm.
There are no abnormal extra-axial fluid collections.
There are no focal areas of diminished density to suggest recent infarct.
There is diffuse cortical atrophy as evidenced by prominence of the CSF spaces.
Additionally, there are punctate and patchy areas of low density in the periventricular and subcortical white matter bilaterally. These white matter changes are nonspecific but given the patient's age are most likely ischemic or degenerative in
origin. Such white matter changes are often seen in older individuals and typically do not correlate clinically.
The mastoid air cells are approximately equally aerated bilaterally.
IMPRESSION:
No acute intracranial abnormalities.
Findings compatible with diffuse cortical atrophy with nonspecific white matter changes as described above.
Electronically signed by Sean Horne MD, 05/08/2024 5:17 PM
[facility] Dose Report: Up-to-date CT equipment and radiation dose reduction techniques were employed. CTDIvol: 47.8 mGy. DLP: 1059 mGy-cm.
Dictated By: Coleen CORRAL,Sean Srivastava.
Dictated Date & Time: 05/08/24 9217
Physical Exam
Vital Signs / I&O
Vitals
Temp Pulse Resp BP Pulse Ox
97.8 F 71 18 146/77 99
05/09/24 07:42 05/09/24 09:02 05/09/24 07:42 05/09/24 09:02 05/09/24 07:42
I&O
05/07/24 05/08/24 05/09/24 05/10/24
06:59 06:59 06:59 06:59
Intake Total 650 / 650
Balance 650 / 650
Physical Exam
General: Well Developed and No Apparent Distress
HEENT: Normocephalic
Respiratory: Clear and Non Labored Respirations
Cardiac: S1/S2 and Regular Rhythm
GI: Soft and Non Tender
Musculoskeletal: No Clubbing, No Cyanosis and No Edema
Skin: Warm
Neuro: Awake
Psych: Calm and Confused
Data Reviewed
-
Diagnostic Radiology: Image personally visualized and interpreted
CT Scan: Image personally visualized and interpreted
--- NOTE | 2024-05-09 09:28 | CON.CAR ---
Addendum entered and electronically signed by Sheela Ramirez PA-C 05/09/24 11:28:
called and discussed with patient's son Tomer via telephone for 8 minutes.
Addendum entered and electronically signed by Leonel Donaldson MD 05/09/24 10:33:
I saw and examined the patient.
The BOX ICER or PA's note was reviewed and I agree with the note.
Comment: General: Well developed, well nourished in NAD.
Neck: Supple, no JVD, HJR, carotids +2 B/L, no bruits bilaterally.
Heart: Non displaced PMI, RRR, no murmurs, No S3, S4, no rubs.
Lungs: Clear to auscultation bilaterally, no wheeze, rhonchi, rubs bilaterally,
normal expiratory phase.
Abdomen: Normal bowel sounds, soft, non-tender, non-distended.
Extremities: No clubbing, cyanosis or edema bilaterally.
Neuro: Awake but confused
Sho has a history of anal squamous cell carcinoma, mesenteric mass, hyperlipidemia, hypertension, hypothyroidism, dementia. Cardiology is consulted for preop evaluation given syncopal episode. She was seen by INTERVENTIONAL RADIOLOGY TECHNOLOGIST surgery yesterday and during
examination she was noted to have significant pain limiting exam and reported passing out several times in office and sent to ER. She is a poor historian with baseline memory issues. She denies chest pain or shortness of breath. She does have
some decreased exercise tolerance with climbing a full flight of steps but is still able to climb steps
Will check echocardiogram. If echocardiogram okay okay for surgery without further testing. Increased risk for surgery but not prohibitive
Original Note:
Consultation
Consultation Request
Date/Time Consultation Performed: 05/09/24
Requesting Provider: Dr. Murray
Performing Provider: Sheela Ramirez PA-C for Dr. Donaldson
Reason for Consultation: preop evaluation
Medical History
-
Chief Complaint: INTERVENTIONAL RADIOLOGY TECHNOLOGIST cancer, dizziness/syncope
History of Present Illness:
Patient is an 83 yo F with PMH of anal squamous cell carcinoma s/p chemotherapy/radiation 2019, mesenteric mass s/p resection 10/2021, HLD, HTN, hypothyroidism. She was seen in follow up by oncology 03/2024 and noted to have findings concerning for
cancer recurrence. She was evaluated by colorectal surgery and referred to INTERVENTIONAL RADIOLOGY TECHNOLOGIST surgery who she saw in office yesterday. During examination, patient was noted to have significant pain limiting exam and reportedly passed out several times in office.
She was sent to ER. Cardiology consulted for pre op clearance. She is planned today for exam under anesthesia in OR today, however pending findings may require significant cancer resection surgery. Patient is a poor historian and reportedly with
baseline memory issues. She relays that she has never needed to see cardiology before to her knowledge. She denies CP. Reports that she lives at home with her son. States over the last month she has noted less tolerance with climbing full set of
stairs (stairs, landing, then more stairs) all at once, but is still able to complete.
PMH:
anal squamous cell carcinoma s/p chemotherapy/radiation 2019
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
HLD
HTN
hypothyroidism
Memory issues/dementia
Past Medical History
Past Medical History: Other (in HPI)
Social History
Tobacco: Non-Smoker
Alcohol: None
Living: With Family (son)
Employment: Retired
Family History
Family History: Reviewed & Not Pertinent
Allergies / Home Medications
Allergy/AdvReac Type Severity Reaction Status Date / Time
KARINA Inhibitors Allergy cough Verified 05/08/24 14:41
apple Allergy Hives to Verified 05/08/24 14:41
Apple Cider
azithromycin Allergy Pharmacy Verified 05/08/24 14:41
[From Zithromax Z-Yony] to Review
hydrocodone [From Vicodin] Allergy GI problems Verified 05/08/24 14:41
nystatin Allergy Rash Verified 05/08/24 14:41
Penicillins Allergy Rash Verified 05/08/24 14:41
perfume Allergy Anaphylaxis Verified 05/08/24 14:41
to Bounce
Dryer
Sheets
Sulfa (Sulfonamide Allergy Hives Verified 05/08/24 14:41
Antibiotics)
triamcinolone Allergy Rash Verified 05/08/24 14:41
�Medication �Instructions �Recorded �Confirmed �Type
aspirin 81 mg tablet,delayed 81 mg PO MOWEFR Blood clot 05/10/19 05/08/24 History
release (Adult Aspirin Regimen) prevention/tx
losartan 100 mg tablet (Cozaar) 100 mg PO DAILY Blood pressure 05/10/19 05/08/24 History
cyanocobalamin (vitamin B-12) 1,000 mcg PO DAILY Supplement 03/04/20 05/08/24 History
1,000 mcg tablet
cholecalciferol (vitamin D3) 50 50 mcg PO DAILY Supplement 08/28/21 05/08/24 History
mcg (2,000 unit) capsule (Vitamin
D3)
ascorbic acid (vitamin C) 500 mg 500 mg PO DAILY Supplement 10/16/21 05/08/24 History
tablet (Vitamin C)
atorvastatin 40 mg tablet (Lipitor) 40 mg PO DAILY High cholesterol 10/16/21 05/08/24 History
levothyroxine 100 mcg tablet 100 mcg PO DAILY Thyroid 10/16/21 05/08/24 History
(Synthroid)
vitamin E 268 mg (400 unit) capsule 268 mg PO DAILY Supplement ##0 10/16/21 05/08/24 History
atorvastatin 40 mg tablet (Lipitor) 40 mg PO DAILY High Cholesterol 05/08/24 05/08/24 History
furosemide 20 mg tablet 20 mg PO DAILY Fluid 05/08/24 05/08/24 History
Retention/Swelling
therapeutic multivitamin 1 tab PO DAILY Supplement 05/08/24 05/08/24 History
Review of Systems
-
History Source: Patient
All other systems: Negative unless noted
Physical Exam
Vital Signs
Temp Pulse Resp BP Pulse Ox
97.8 F 71 18 146/77 99
05/09/24 07:42 05/09/24 09:02 05/09/24 07:42 05/09/24 09:02 05/09/24 07:42
Lab Results
05/09/24 05:50
05/09/24 05:50
Physical Exam
General: No Apparent Distress and Comfortable
HEENT: Normocephalic, Anicteric and Moist Mucous Membranes
Respiratory: Clear and Non Labored Respirations
Cardiac: S1/S2 and Regular Rhythm
GI: Soft and Non Tender
Musculoskeletal: No Clubbing, No Cyanosis and No Edema
Skin: Warm and Dry
Neuro: Awake, Alert and Oriented ( to self. knows she is in a hospital)
Impression / Plan
-
Primary Big Data Hadoop Developer: none
Assessment:
Extensive tumor involving bilateral labia and clitoris consistent with squamous cell carcinoma
Syncope, felt to be vasovagal secondary to pain d/t above
anal squamous cell carcinoma s/p chemotherapy/radiation 2019
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
HLD
HTN
hypothyroidism with abnormal TFTs
Memory issues/dementia
Anemia
ECHO 05/09/24: pending
Plan:
-Patient presents as noted to have extensive tumor involving bilateral labia and clitoris consistent with squamous cell carcinoma. During examination yesterday she was noted to have syncope, which appears to be vasovagal secondary to pain. She has
a history of anal squamous cell carcinoma status postchemotherapy and radiation in 2019 as well as mesenteric mass resection in 2021. Cardiology consulted for preop evaluation
-No chest pain or shortness of breath
-BPs stable. on cozaar 100mg daily and lasix 20mg daily as OP. hold OP lasix for now. does not appear volume overloaded
-EKG sinus rhythm with NSSTS. in SR on review of tele overnight, follow
-Echocardiogram pending
-Chest/abdomen/pelvis CT also pending
-she is planned for INTERVENTIONAL RADIOLOGY TECHNOLOGIST exam under anesthesia today and pending results suspected to require extensive radical resection and reconstruction
-also for MRI pelvis today
-TFTs abnormal on OP synthroid, adjustment of dosing per primary service
-will give clearance based on results of testing above
-d/w nursing, hospitalist, INTERVENTIONAL RADIOLOGY TECHNOLOGIST onc
Data Reviewed
-
EKG: Tracing Personally Visualized and interpreted
Labs: Labs Reviewed by me
Old Records: Reviewed
[2024-05-09 09:39] LABS: Iron 69 ug/dl (37-170); LDH 247 U/L (120-246)
[2024-05-09 09:48] LABS: Percent Saturation 31 % (20-50); Total Iron Binding Capacity 218 ug/dl (265-497)
[2024-05-09 10:58] LABS: Ferritin 54.6 ng/ml (11.1-264.0)
[2024-05-09 11:29] LABS: Folate 13.3 ng/ml (2.76-20); Vitamin B12 882 pg/ml (239-931)
--- NOTE | 2024-05-09 13:23 | PTCARENOTE ---
Pt left for OR at this time. Pt left with transport on hospital bed. Her chart was also sent.
--- NOTE | 2024-05-09 14:28 | CM ---
Patient admitted for surgery.
TC to issac Jeff left for IA information.
Patient off the floor for OR today.
--- NOTE | 2024-05-09 14:42 | WOUNDNOTE ---
PROXIMAL TO ANUS
--- NOTE | 2024-05-09 14:43 | WOUNDNOTE ---
VAGINAL CAVITY AND LABIA
--- NOTE | 2024-05-09 14:56 | WOUNDNOTE ---
WO RN note: Patient admitted with syncope and vulvar neoplasm.
See H&P for complete history.
PMH: Squamous Cell Carcinoma (Anus) - Chemo, XRT 2019, XRT 2023
Hypothyroidism, Hypertension, Senile Dementia
Wound Location and type/assessment: Patient admitted with: open full thickness ulcers on Vulva- invasive squamous cell cancer. Nursing and Oncologist unable to assess at bedside. Asked to assess patient in OR by Dr. Sunshine regarding recommendations
for wound care and odor control. See photos.
Appetite: NPO
Pressure redistribution devices in place:recommend air overlay or air mattress.
Plan: Confirmed with Dr. Sunshine can use Vashe daily as tolerated and prn odor. moisten non woven gauze with Vashe, cover with ABD pad and mesh underwear if tolerated. Called [facility] for supply and nurse Sabine notified.
Updated care plan and will follow as needed.
Note to case management of equipment requested for discharge: TBD
Recommend follow with oncologist.
--- NOTE | 2024-05-09 15:32 | OR.RPT ---
Operative Report
Operative Report
Date of procedure: May 09, 2024
Preoperative diagnosis: History of anal cancer, status post prior chemo-radiation therapy, vulvar lesion suspicious for malignancy
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
Surgeon: Sean Sunshine
Assist: Luis Miguel Gaytan PA-C
Procedure:
Exam under anesthesia, including rectovaginal examination
Multiple biopsies of periclitoral skin, right and left labia minora, perineal body and 11:00 perianal skin
Diagnostic cystoscopy and ureteroscopy
Pap smear of the cervix including ecto and endocervical specimen
Anesthesia: General LMA intubation
Estimated blood loss 25 cc
Complications: None
Indication for the surgery: This is an 83-year-old woman with prior history of anal cancer in 2019 treated with chemoradiation. The patient did have a biopsy of the vulva approximately 1 year ago and received palliative radiation therapy to the
vulva she now presents with a bleeding painful vulvar lesion that could not be properly evaluated and examined in the office. She is brought to the operating room for more thorough evaluation.
Findings: There is malignant neoplasm approximately 6 x 6 cm at about 11:00 perianal skin extending onto perineal body, there is visible neoplasm involving right and left labia minora extending all the way up to clitoris and anderson. The urethral
meatus is unremarkable. Cystoscopy shows bladder mucosa to be within normal limits without any lesions, radiation changes are present. the vagina is normal and just atrophic changes are noted. The cervix is small and unremarkable. Bimanual exam
is difficult and I cannot palpate the uterus and ovaries. Distal anus was examined at least for about 5 cm, I do not detect any mucosal lesions present. There are thickening of the skin and subcutaneous tissue involving the left side of the
perianal region without visible or palpable malignancy
Procedure in detail: Patient was brought to the operating room and placed in supine position, general anesthesia was administered and LMA intubation was performed. She was placed in lithotomy position using yellowfin stirrups. The anal rectal
vault was filled with hard stool, I went ahead and extracted all the stool in the lower anorectal vault. She was then prepped in the lower abdomen perineum upper thighs and perianal skin and buttocks with Betadine solution. The patient was draped.
She received 2 g of Ancef for prophylaxis. We examined the external genitalia with the findings noted above. I used a loop electrode 8 mm wide to perform biopsies of the skin on the right and left clitoral anderson and these were submitted to
pathology. Similarly loop electrode was used on right and left vulva to excise approximately a centimeter of skin and was submitted to pathology. Loop electrode was used to excise portion of the tumor involving the perineal body and this was
submitted to pathology. Finally loop electrode was used on the right perianal skin. The bed of all of the above biopsy sites was cauterized with rollerball cautery at 50 W. We then examined the vagina and established that the vaginal mucosa is
unremarkable, the cervix was visualized and Pap smear of the cervix including a broom and brush as well as spatula was performed and submitted to liquid cytology. Finally 30 degree cystoscope was introduced in the urethral meatus. There is at
least 1+ centimeter of normal tissue between urethral meatus and tumor involving anterior vulva. The urethra itself trigone of the bladder as well as all of the gibson of the bladder were examined and there is no evidence of tumor within the
bladder. Cystoscope was removed and the bladder was emptied.
I requested Dr. Pavon who had referred me this patient presented to the operating room for an examination as well and we discussed the findings in order to decide on the eventual treatment of the patient.
I placed Monsel solution on all the biopsy sites. We irrigated and cleansed the skin involving upper thighs perineal body. Patient was awakened extubated and returned back to recovery room stable awake and extubated condition. Counts of laps
instruments and needle was correct x 2. I was present and scrubbed for entire procedure as dictated above
Disposition: Awake alert stable to PACU
[2024-05-09] MEDS: HEPARIN SC (17:23)
--- NOTE | 2024-05-09 17:24 | PTCARENOTE ---
Pt back on the floor from her OR procedure. Pt is laying in POC and in no distress
[2024-05-10] VITALS (7 sets, daily range): BP systolic 131–170; BP diastolic 44–78; PULSE 66–82; O2SAT 100; BMI 31.9
[2024-05-10] MEDS: HEPARIN SC (00:32)
[2024-05-10] MEDS: LR 1000 IV (04:21)
[2024-05-10] MEDS: SYNTHROID 112 MCG PO (04:30)
[2024-05-10 07:37] LABS: % Basophils 0.2 % (0-2); % Immature Granulocytes 0.4 % (0-0.5); % Lymphocytes 4.1 % (20.5-51.1); % Monocytes 3.3 % (1.7-9.3); Absolute Lymphocytes 0.4 10^3/uL (1.2-3.4); Absolute Monocytes 0.3 10^3/uL (0.1-0.6); Absolute Neutrophils 8.7 10^3/uL (1.4-6.5); Hematocrit 31.7 % (37.0-47.0); Hemoglobin 10.7 g/dL (12.0-16.0); Mean Corp Hgb Conc. 33.8 g/dL (33.0-37.0); Mean Corpuscular Hgb 32.6 pg (27.0-31.0); Mean Corpuscular Volume 96.6 fL (81.0-99.0); Mean Platelet Volume 10.9 fL (7.4-10.4); Nucleated Red Blood Cells % 0 %; Platelet Count 191 10^3/uL (130-400); Red Blood Cell Count 3.28 10^6/uL (4.20-5.40); Red Cell Dist. Width 14.4 % (11.5-14.5); White Blood Cell Count 9.5 10^3/uL (4.8-10.8)
[2024-05-10 07:51] LABS: ALT (SGPT) 14 U/L (0-35); AST (SGOT) 19 U/L (14-36); Albumin 3.1 g/dl (3.5-5.0); Alkaline Phosphatase 87 U/L (38-126); Blood Urea Nitrogen 12 mg/dl (7-17); Calcium 8.9 mg/dl (8.4-10.2); Carbon Dioxide 23 mmol/L (22-30); Chloride 107 mmol/L (98-107); Estimated Creatinine Clearance 53 ml/min; Glucose 182 mg/dl (70-99); Potassium 4.9 mmol/L (3.5-5.1); Sodium 137 mmol/L (135-145); Total Bilirubin 0.6 mg/dl (0.2-1.3); Total Protein 5.5 g/dl (6.3-8.2); eGFR > 60.00
[2024-05-10] MEDS: COZAAR 100 MG PO (08:45)
[2024-05-10] MEDS: LIPITOR 40 MG PO (08:45)
[2024-05-10] MEDS: HEPARIN 5000 UNITS SC ×2 (08:46→16:49)
--- NOTE | 2024-05-10 10:43 | W.PN.HOSP.TC ---
Today's Communication/Plan
-
PT/OT and d/c depending on the dispo
Assessment / Plan
Assessment / Plan
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
PROGRAM STRATEGIST exam under anasthesia. No LOC reported, but dizziness while standing.
A/P:
#Valvular squamous cell CA
Needs additional examination under anaesthesia
MRI pelvis: Malignant mass situated within the right inferior peroneal soft tissues extending from the anus to the vaginal introitus. Tumor does not clearly extend superiorly within the vaginal canal. Tumor is in close proximity to the distal
urethra, which may also be involved.
Outpatient follow up with PROGRAM STRATEGIST and [facility]
#Dizziness
Telemetry with no significant arrhythmia
PT/OT
Echo: EF 55-60%,Normal regional wall motion, mild tricuspid and aortic regurgitation, dense mitral calcifications
Head CT unremarkable
carotid US: less then 50% stenosis b/l 2/2 ASCVD
EKG with no TWI. poor R progression
#anemia, macrocytic
B12 and folate WNL
#HLD
#Essential HTN
#ASCVD
#Hypothyroidism
#Dementia
TSH significantly elevated, but questionable compliance as per admission note, reasonable to increase Synthroid to 112mcg and repeat TFT in 2-3 weeks
cont rest of meds
Furosemide on hold on admission - follow volume status, stop IVF
Unclear why ASA three time per week
DVT ppx hep
Full code
I have spent at least 38min reviewing chart, test results, communication with consultants and providing direct patient care
Anticipated Discharge: Within 24 hours
Subjective/Interval History
-
Date of Service: May 10, 2024
Objective Data
-
Labs:
Laboratory Results
03/26/25 03/26/25
06:01 07:19
WBC Cancelled 9.5
Hgb Cancelled 10.7 L
Hct Cancelled 31.7 L
Plt Count Cancelled 191
Sodium Cancelled 137
Potassium Cancelled 4.9
Chloride Cancelled 107
Carbon Dioxide Cancelled 23
BUN Cancelled 12
Creatinine Cancelled 0.6
Glucose Cancelled 182 H
Calcium Cancelled 8.9
Total Bilirubin Cancelled 0.6
AST Cancelled 19
ALT Cancelled 14
Alkaline Phosphatase Cancelled 87
Vital Signs:
Vital Signs
Temp Pulse Resp BP Pulse Ox
97.9 F 66 18 134/64 100
05/10/24 07:40 05/10/24 08:45 05/10/24 07:40 05/10/24 08:45 05/10/24 07:40
I&O
05/09/24 05/10/24 05/11/24
06:59 06:59 06:59
Intake Total 650 / 650 975 / 975 320 / 320
Balance 650 / 650 975 / 975 320 / 320
Review of Systems
-
Unable to obtain full review of systems at this time due to: Dementia
History Source: Patient
Physical Exam
-
General: Comfortable
HEENT: Normocephalic
Cardiac: Regular Rhythm
Neuro: Awake, Alert and Oriented
Psych: Calm and Apparent Dementia
--- NOTE | 2024-05-10 12:36 | CM ---
Addendum entered by Rose Briceño 05/10/24 15:58:
TC back from son Tomer, he will review facility acceptances and let this CM know preference. TC to [facility] to see if they can accept patient, per son, cardiology is doing a stres test tomorrow.
Addendum entered by Rose Briceño 05/10/24 13:49:
Left message for son re options and acceptances, await TCB with decision. Once CM hears from son, will initiate insurance auth.
Original Note:
Spoke with patient and son via phone today.
patient lives with son in a 2 story home, patient with 1 story living.
Patient independent at home, showers herself, cleans dishes, can get her won food and fold laundry.
Son does laundry as there are steps to the washer and dryer.
Patient does not drive.
Patients spouse lives at the house every other week, and is with daughter the opposite week.
Per son patient does have some memory issues. Son not realize his mother would require some wound care.
PT evaluated patient today and son agreeable to skilled rehab, options emailed to son and referrals placed.
Patient will require an insurance auth once son chooses facility.
PCP: Dr Moore
Pharmacy: [facility]
Plan: Skilled rehab once bed and auth available.
--- NOTE | 2024-05-10 12:52 | W.PN.CARDCBS ---
Addendum entered and electronically signed by Daniel Patel MD 05/10/24 14:56:
I saw and examined the patient.
The Breakdown Worker's note was reviewed and I agree with the note.
Comment: Briefly, 83-year-old woman with past medical history of squamous cell carcinoma of the labia with prior chemo and radiation who presented following a syncopal episode. She underwent exam under anesthesia yesterday and cardiology was
initially consulted for preoperative evaluation/risk stratification.
Patient is resting comfortably today, no cardiac complaints, no further episodes of lightheadedness or dizziness
There is consideration for resection of her malignancy in the near future which it sounds like would be an extensive surgery. With the patient's limited functional capacity would recommend pharmacologic nuclear stress test prior to the surgery.
Based on discussion with the surgical team they would appreciate us expediting this workup to help inform their decision-making process. Tentative plan for nuclear stress test in AM.
Original Note:
Today's Communication / Plan
-
lexiscan stress test in AM
Impression / Plan
-
Primary Blending Technician: none
Assessment:
Extensive tumor involving bilateral labia and clitoris consistent with squamous cell carcinoma
Syncope, felt to be vasovagal secondary to pain d/t above
anal squamous cell carcinoma s/p chemotherapy/radiation 2019
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
HLD
HTN
hypothyroidism with abnormal TFTs
Memory issues/dementia
Anemia
ECHO 05/09/24: EF 55 to 60%, dense heavy MAC, calcified chordal structures noted, moderate MR, aortic sclerosis, mild AR, mild TR, PAP 30 to 35 mmHg
Plan:
-Patient presents as noted to have extensive tumor involving bilateral labia and clitoris consistent with squamous cell carcinoma. During examination yesterday she was noted to have syncope, which appears to be vasovagal secondary to pain. She has
a history of anal squamous cell carcinoma status postchemotherapy and radiation in 2019 as well as mesenteric mass resection in 2021. Cardiology consulted for preop evaluation
-results of exam under anesthesia and pelvic MRI reviewed. d/w TERMINAL SUPERINTENDENT onc, due to complexity of proposed surgery (which includes complete radical vulvectomy, APR, flap by plastic surgery, colostomy), will complete lexiscan nuclear stress test in AM for
risk assessment. NPO after midnight. plan will then be for discussion with colorectal and TERMINAL SUPERINTENDENT onc in 2 weeks in outpatient setting to formally discuss options
-she had syncope in TERMINAL SUPERINTENDENT onc office leading to admission, but this was felt to be vasovagal in setting of pain
-echo with preserved EF, MAC, mod MR.
-continue cozaar. OP lasix on hold.
-not on tele at present time
-continue wound care. patient reports that her 2 neighbors were helping her with wound care at home prior to admission
-d/w nursing, hospitalist
-d/w son Tomer via telephone
Progress Note - Blending Technician
Subjective
Date of Service: May 10, 2024
no CP, SOB, palpitations.
Objective
Labs:
05/10/24 07:19
05/10/24 07:19
Labs
Hgb 10.7 g/dL (12.0-16.0) L 05/10/24 07:19
Hct 31.7 % (37.0-47.0) L 05/10/24 07:19
Plt Count 191 10^3/uL (130-400) 05/10/24 07:19
PT 14.4 Sec (11.4-14.6) 05/09/24 05:50
INR 1.08 05/09/24 05:50
APTT 32.0 Sec (23.4-35.0) 05/09/24 05:50
Sodium 137 mmol/L (135-145) 05/10/24 07:19
Potassium 4.9 mmol/L (3.5-5.1) 05/10/24 07:19
BUN 12 mg/dl (7-17) 05/10/24 07:19
Creatinine 0.6 mg/dL (0.6-1.0) 05/10/24 07:19
Glucose 182 mg/dl (70-99) H 05/10/24 07:19
Vital Signs and I&O:
Vital Signs
Temp Pulse Resp BP Pulse Ox
97.9 F 66 18 134/64 100
05/10/24 07:40 05/10/24 08:45 05/10/24 07:40 05/10/24 08:45 05/10/24 07:40
Vital Signs
Temp Pulse Resp BP Pulse Ox
97.9 F 66 18 134/64 100
05/10/24 07:40 05/10/24 08:45 05/10/24 07:40 05/10/24 08:45 05/10/24 07:40
Intake & Output
05/08/24 05/09/24 05/10/24 05/11/24
07:59 07:59 07:59 07:59
Intake Total 650 / 650 975 / 975 320 / 320
Balance 650 / 650 975 / 975 320 / 320
Physical Exam
Physical Exam
GEN: No distress, awake, alert, oriented to self. forgetful
HEENT: supple, anicteric, mmm, eomi
LUNGS: CTA B/L, no wheezes/rales
CV: Reg, S1/S2, no murmur
ABD: soft, BS+, NT/ND
EXT: No cyanosis, clubbing, edema
NEURO: Gross non-focal
SKIN: Warm, pink, dry. No rash
[2024-05-11] MEDS: HEPARIN 5000 UNITS SC ×3 (00:09→18:22)
[2024-05-11 04:36] VITALS: BMI 31.9
[2024-05-11] MEDS: SYNTHROID 112 MCG PO (05:22)
[2024-05-11 07:37] VITALS: BP 137/71
[2024-05-11 07:39] VITALS: BP 137/71; BP 148/75; BP 171/109; PULSE 58; PULSE 81; PULSE 86
--- NOTE | 2024-05-11 08:40 | CM ---
Addendum entered by Rose Briceño 05/11/24 15:12:
Son updated, IMM reviewed.
Addendum entered by Rose Briceño 05/11/24 14:58:
Patient for tentative d/c in am to snf, left vm for son and spoke with Danita from [facility].
Addendum entered by Rose Briceño 05/11/24 13:35:
[facility] NPI# [id number]
accepting MD: Dr Beasley NPI# [id number]
skilled authorization received via [employer]- Auth # [id number]
Authorization given to Danita at [facility]- p# [phone]
[facility]
Report# [phone]
fax# [phone]
Plan: [facility] once medically stable.
Addendum entered by Rose Briceño 05/11/24 11:18:
[facility] skilled rehab has a bed today, son in agreement with initiating authorization.
Await decision re d/c date to start authorization.
Plan: skilled rehab once medically cleared and insurance auth obtained.
Patient will require ambulance transport.
Original Note:
[facility] skilled rehab unable to accept patient. Await TCB from son. Patient for Stress test today.
Plan: skilled rehab once baed available and auth obtained.
[2024-05-11] MEDS: LEXISCAN 0.4 MG IV (10:07)
[2024-05-11] MEDS: AMINOPHYLLINE 75 MG IV (10:08)
[2024-05-11] MEDS: FLUSH (NSS) 1 FLUSH IV (10:10)
--- NOTE | 2024-05-11 10:26 | W.PN.HOSP.TC ---
Addendum entered and electronically signed by Gina Garcia MD 05/12/24 09:41:
Addendum
Patient has stress test and felt weak. Discussed with casework supervisor, bed available to be discharged on Wednesday
Original Note:
Today's Communication/Plan
-
discharge
Assessment / Plan
Assessment / Plan
Physical Exam
GEN: No distress, awake, alert, oriented to self. sitting in chair. forgetful
HEENT: supple, anicteric, mmm, eomi
LUNGS: CTA B/L, no wheezes
CV: Reg, S1/S2, 1/6 murmur
ABD: soft, BS+, NT/ND
EXT: No cyanosis, clubbing, edema
NEURO: Awake, oriented to surroundings, forgetful and confused at times. She followed simple commands.
SKIN: Warm, pink, dry. No rash
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
SOFTWARE SUPPORT REPRESENTATIVE exam under anasthesia. No LOC reported, but dizziness while standing.
A/P:
#Valvular squamous cell CA
Needs additional examination under anaesthesia
MRI pelvis: Malignant mass situated within the right inferior peroneal soft tissues extending from the anus to the vaginal introitus. Tumor does not clearly extend superiorly within the vaginal canal. Tumor is in close proximity to the distal
urethra, which may also be involved.
Outpatient follow up with SOFTWARE SUPPORT REPRESENTATIVE and [facility] discussed with conservation worker, patient would be
Moderate risk but not prohibitive risk for surgical options.
#Dizziness
Telemetry with no significant arrhythmia
PT/OT
Echo: EF 55-60%,Normal regional wall motion, mild tricuspid and aortic regurgitation, dense mitral calcifications
Head CT unremarkable
carotid US: less then 50% stenosis b/l 2/2 ASCVD
EKG with no TWI. poor R progression
Stress test showed normal perfusion and ejection fraction.
#anemia, macrocytic
B12 and folate WNL
#HLD
#Essential HTN
#ASCVD
#Hypothyroidism
#Dementia
TSH significantly elevated, but questionable compliance as per admission note, reasonable to increase Synthroid to 112mcg and repeat TFT in 2-3 weeks
cont rest of meds
Furosemide on hold on admission - follow volume status, stop IVF
Unclear why ASA three time per week
DVT ppx hep
Full code
Total discharge time spent to see the patient, examine the patient, review data and lab results, discuss treatment plan with patient, nursing staff and casework supervisor around 67 minutes
Anticipated Discharge: Today
Subjective/Interval History
-
Date of Service: May 11, 2024
No pain issues
No sob
Objective Data
-
Vital Signs:
Vital Signs
Temp Pulse Resp BP Pulse Ox
97.3 F 58 16 137/71 100
05/11/24 07:37 05/11/24 07:37 05/11/24 07:37 05/11/24 07:37 05/11/24 07:37
I&O
05/10/24 05/11/24 05/12/24
06:59 06:59 06:59
Intake Total 975 / 975 1040 / 1040
Balance 975 / 975 1040 / 1040
[2024-05-11] MEDS: LIPITOR 40 MG PO (13:07)
[2024-05-11] MEDS: COZAAR 100 MG PO (13:07)
--- NOTE | 2024-05-11 14:25 | W.PN.CARDCBS ---
Addendum entered and electronically signed by Jonny Persaud DO 05/11/24 14:58:
I saw and examined the patient.
The Tight Barrel Inspector's note was reviewed and I agree with the note.
Comment:
Plan:
MIBI with normal perfusion and EF
Echo with preserved EF.
Pt given results of cardiac testing.
Pt would be moderate risk but no prohibitive for surgical options if that is decided.
please recall if needed
Original Note:
Today's Communication / Plan
-
felt to be moderate cardiac risk for surgeries/procedures however this risk is not prohibitive if patient opts to proceed.
plan for patient and family discussion with colorectal and ASSEMBLY LINE BRAZER/onc in 2 weeks as outpatient to formally discuss all treatment options
Impression / Plan
-
Primary Foamite Mixer: none
Assessment:
Extensive tumor involving bilateral labia and clitoris consistent with squamous cell carcinoma
Syncope, felt to be vasovagal secondary to pain d/t above
anal squamous cell carcinoma s/p chemotherapy/radiation 2019
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
HLD
HTN
hypothyroidism with abnormal TFTs
Memory issues/dementia
Anemia
ECHO 05/09/24: EF 55 to 60%, dense heavy MAC, calcified chordal structures noted, moderate MR, aortic sclerosis, mild AR, mild TR, PAP 30 to 35 mmHg
Plan:
-Patient presents as noted to have extensive tumor involving bilateral labia and clitoris consistent with squamous cell carcinoma. During examination at OP ASSEMBLY LINE BRAZER/onc appt she was noted to have syncope, which appears to be vasovagal secondary to pain.
She has a history of anal squamous cell carcinoma status postchemotherapy and radiation in 2019 as well as mesenteric mass resection in 2021. Cardiology consulted for preop evaluation
-results of exam under anesthesia and pelvic MRI reviewed. d/w ASSEMBLY LINE BRAZER onc 05/10, proposed surgery would include complete radical vulvectomy, APR, flap by plastic surgery, colostomy
-s/p lexiscan nuclear stress test 05/11 without evidence of ischemia and preserved EF. felt to be moderate cardiac risk for surgeries/procedures however this risk is not prohibitive if patient opts to proceed. given memory issues and other
comorbidities, palliative treatment also appears reasonable. plan for patient and family discussion with colorectal and ASSEMBLY LINE BRAZER/onc in 2 weeks as outpatient to formally discuss all treatment options
-echo with preserved EF, MAC, mod MR.
-continue cozaar. OP lasix on hold.
-not on tele at present time
-continue wound care. patient reports that her 2 neighbors were helping her with wound care at home prior to admission
-ok for DC from cardiac standpoint. plan for SNF
-d/w nursing, hospitalist
-will plan to sign off
Progress Note - Foamite Mixer
Subjective
Date of Service: May 11, 2024
no cardiac issues. forgetful
Objective
Labs:
05/10/24 07:19
05/10/24 07:19
Labs
Hgb 10.7 g/dL (12.0-16.0) L 05/10/24 07:19
Hct 31.7 % (37.0-47.0) L 05/10/24 07:19
Plt Count 191 10^3/uL (130-400) 05/10/24 07:19
PT 14.4 Sec (11.4-14.6) 05/09/24 05:50
INR 1.08 05/09/24 05:50
APTT 32.0 Sec (23.4-35.0) 05/09/24 05:50
Sodium 137 mmol/L (135-145) 05/10/24 07:19
Potassium 4.9 mmol/L (3.5-5.1) 05/10/24 07:19
BUN 12 mg/dl (7-17) 05/10/24 07:19
Creatinine 0.6 mg/dL (0.6-1.0) 05/10/24 07:19
Glucose 182 mg/dl (70-99) H 05/10/24 07:19
Vital Signs and I&O:
Vital Signs
Temp Pulse Resp BP Pulse Ox
97.3 F 58 16 137/71 100
05/11/24 07:37 05/11/24 13:07 05/11/24 07:37 05/11/24 13:07 05/11/24 08:00
Vital Signs
Temp Pulse Resp BP Pulse Ox
97.3 F 58 16 137/71 100
05/11/24 07:37 05/11/24 13:07 05/11/24 07:37 05/11/24 13:07 05/11/24 08:00
Intake & Output
05/09/24 05/10/24 05/11/24 05/12/24
07:59 07:59 07:59 07:59
Intake Total 650 / 650 975 / 975 1040 / 1040
Balance 650 / 650 975 / 975 1040 / 1040
Physical Exam
Physical Exam
GEN: No distress, awake, alert, oriented to self. sitting in chair. forgetful
HEENT: supple, anicteric, mmm, eomi
LUNGS: CTA B/L, no wheezes
CV: Reg, S1/S2, 1/6 murmur
ABD: soft, BS+, NT/ND
EXT: No cyanosis, clubbing, edema
NEURO: Gross non-focal
SKIN: Warm, pink, dry. No rash
[2024-05-11 15:17] VITALS: BP 124/48
[2024-05-11 23:40] VITALS: BP 151/72
[2024-05-12] MEDS: HEPARIN 5000 UNITS SC ×2 (01:14→09:09)
[2024-05-12 04:41] VITALS: BMI 31.7
[2024-05-12] MEDS: SYNTHROID 112 MCG PO (05:21)
[2024-05-12 07:40] VITALS: BP 120/65; BP 123/59; BP 131/63; PULSE 69; PULSE 74; PULSE 76
--- NOTE | 2024-05-12 08:54 | CM ---
Addendum entered by Rose Briceño 05/12/24 09:41:
Transport arranged for 1:30 pm, son and facility updated.
Original Note:
Patient for transfer to [facility] today.
IMM completed.
Plan: skilled rehab, ambulance transport forms on chart.
[facility]
Report# [phone]
fax# [phone]
[2024-05-12] MEDS: COZAAR 100 MG PO (09:08)
[2024-05-12] MEDS: LIPITOR 40 MG PO (09:08)
--- NOTE | 2024-05-12 09:39 | W.PN.HOSP.TC ---
Today's Communication/Plan
-
dc
Assessment / Plan
Assessment / Plan
Physical Exam
GEN: No distress, awake, alert, oriented to self. sitting in chair. forgetful
HEENT: supple, anicteric, mmm, eomi
LUNGS: CTA B/L, no wheezes
CV: Reg, S1/S2, 1/6 murmur
ABD: soft, BS+, NT/ND
EXT: No cyanosis, clubbing, edema
NEURO: Awake, oriented to surroundings, forgetful and confused at times. She followed simple commands.
SKIN: Warm, pink, dry. No rash
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
P[employer] MACHINE OPERATOR exam under anasthesia. No LOC reported, but dizziness while standing.
A/P:
#Valvular squamous cell CA
Needs additional examination under anaesthesia
MRI pelvis: Malignant mass situated within the right inferior peroneal soft tissues extending from the anus to the vaginal introitus. Tumor does not clearly extend superiorly within the vaginal canal. Tumor is in close proximity to the distal
urethra, which may also be involved.
Outpatient follow up with [employer] MACHINE OPERATOR and [facility] discussed with educational programming director, patient would be
Moderate risk but not prohibitive risk for surgical options.
#Dizziness
Telemetry with no significant arrhythmia
PT/OT
Echo: EF 55-60%,Normal regional wall motion, mild tricuspid and aortic regurgitation, dense mitral calcifications
Head CT unremarkable
carotid US: less then 50% stenosis b/l 2/2 ASCVD
EKG with no TWI. poor R progression
Stress test showed normal perfusion and ejection fraction.
#anemia, macrocytic
B12 and folate WNL
#HLD
#Essential HTN
#ASCVD
#Hypothyroidism
#Dementia
TSH significantly elevated, but questionable compliance as per admission note, reasonable to increase Synthroid to 112mcg and repeat TFT in 2-3 weeks
cont rest of meds
Furosemide on hold on admission - follow volume status, stop IVF
Unclear why ASA three time per week
DVT ppx hep
Full code
Total discharge time spent to see the patient, examine the patient, review data and lab results, discuss treatment plan with patient, nursing staff and casework manager around 67 minutes
Anticipated Discharge: Today
Subjective/Interval History
-
Date of Service: May 12, 2024
Objective Data
-
Vital Signs:
Vital Signs
Temp Pulse Resp BP Pulse Ox
98 F 69 16 123/59 97
05/12/24 07:40 05/12/24 09:08 05/12/24 07:40 05/12/24 09:08 05/12/24 07:40
I&O
05/11/24 05/12/24 05/13/24
06:59 06:59 06:59
Intake Total 1040 / 1040 480 / 480
Balance 1040 / 1040 480 / 480
[2024-05-12 11:55] VITALS: BP 129/63
--- NOTE | 2024-05-12 13:50 | W.DCSUMMARY ---
Discharge Summary
Discharge Data
Date of Admission: 05/08/24
Date of Discharge: 05/12/24
-
Pending Results: No
Hospital Course
83 years old female with history of squamous cell carcinoma of the anus presented to the emergency room for evaluation of dizziness/near syncopal episode at [employer]/oncology office while being evaluated for extensive painful tumor involving bilateral
labia and clitoris. Patient was unable to tolerate examination and was referred to the hospital for further evaluation and examination under anesthesia. Patient went for procedure on May [address] Sunshine and Dr Pavon. Procedure showed
malignant neoplasm approximately 6 x 6 cm perianal skin extending onto the perineal body with involvement of right and left labia minora extended to clitoris and anderson. She was found to have normal anal canal at the mucosal level with likely
recurrence of prior anal cancer involving anal sphincter more on the right than the left side. Patient had multiple biopsies of the Justin clitoral skin, right and left labia minora, perineal body and 11:00 perianal skin, she had diagnostic
cystoscopy and ureteroscopy, Pap smear of the cervix including ecto and endocervical specimens. The plan was to discuss further treatment option including surgical in outpatient setting. Patient was evaluated by kindergarten assistant, she had MIBI with
normal perfusion and ejection fraction, she had echocardiogram with a preserved left ventricular ejection fraction. Patient was found to be moderate risk but not prohibitive for surgical options if needed. Patient did not need pain medications in
the hospital. She was noted to be forgetful to details. She did not have agitation. She remained hemodynamically stable and [facility].
Discharge Plan
-
Patient Disposition: Retirement/SNF
Discharge Diagnosis/Procedures: Extensive tumor involving bilateral labia and clitoris consistent with squamous cell carcinoma
Syncope, felt to be vasovagal secondary to pain d/t above
anal squamous cell carcinoma s/p chemotherapy/radiation 2019
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
Diet: As tolerated
Activity Restrictions/Additional Instructions:
Wound Care Instructions
Vagina/labia/proximal to anus: Vashe soaked non woven gauze and ABD pad with mesh underwear daily as tolerated, change prn drainage.
Follow up with oncologist
Referrals:
Christian Pavon MD [Active] - in one to two weeks
Tosin Moore MD [Family Provider] - in one to two weeks
Sean Sunshine MD [Active] - in one to two weeks
Prescriptions:
New
acetaminophen 325 mg Tablet
650 mg PO Q4HPRN PRN (Reason: Pain, fever) Qty: 15 0RF
Continued
aspirin [Adult Aspirin Regimen] 81 MG tablet,delayed release (DR/EC)
81 mg PO MOWEFR
losartan [Cozaar] 100 MG tablet
100 mg PO DAILY
cyanocobalamin (vitamin B-12) 1,000 MCG tablet
1,000 mcg PO DAILY
cholecalciferol (vitamin D3) [Vitamin D3] 50 mcg (2,000 unit) Capsule
50 mcg PO DAILY
atorvastatin [Lipitor] 40 mg Tablet
40 mg PO DAILY
levothyroxine [Synthroid] 100 mcg Tablet
100 mcg PO DAILY
ascorbic acid (vitamin C) [Vitamin C] 500 mg Tablet
500 mg PO DAILY
vitamin E 268 mg (400 unit) Capsule
268 mg PO DAILY Qty: 0
therapeutic multivitamin Tablet
1 tab PO DAILY
furosemide 20 mg Tablet
20 mg PO DAILY
atorvastatin [Lipitor] 40 mg Tablet
40 mg PO DAILY
Discharge Orders:
Discharge Patient (As Directed); Ordered 05/12/24
Ordered By: Gina Garcia
Discharge Date and Time
Print Language: PALESTINIAN
== END 2024-05-12 13:51 | DRG 746 ==
LOC: 4 EAST ACU 20:05
PROVIDERS: Internal Medicine; Nuclear Medicine Nuclear Cardiology; Physician Assistant; Surgery; ADMITTING PHYSICIAN Hospitalist; ATTENDING PHYSICIAN Internal Medicine; CONSULT PHYSICIAN Obstetrics & Gynecology Gynecologic Oncology; EMERGENCY PHYSICIAN Emergency Medicine; FAMILY PHYSICIAN Internal Medicine; OTHER PHYSICIAN Internal Medicine Cardiovascular Disease
PROC: 0UBMXZX Excision of Vulva, External Approach, Diagnostic (ICD-10-PCS; 2024-05-09)
PROC: 0UB Female Reproductive System, Excision (ICD-10-PCS; 2024-05-09)
PROC: 0HB9XZX Excision of Perineum Skin, External Approach, Diagnostic (ICD-10-PCS; 2024-05-09)
PROC: 0TJB8ZZ Inspection of Bladder, Via Natural or Artificial Opening Endoscopic (ICD-10-PCS; 2024-05-09)
PROC: 0DJD8ZZ Inspection of Lower Intestinal Tract, Via Natural or Artificial Opening Endoscopic (ICD-10-PCS; 2024-05-10)
PROC: 4A12XM4 Monitoring of Cardiac Stress, External Approach (ICD-10-PCS; 2024-05-11)
PROC: 3E033HZ Introduction of Radioactive Substance into Peripheral Vein, Percutaneous Approach (ICD-10-PCS; 2024-05-11)
DX: C51.8 Malignant neoplasm of overlapping sites of vulva (principal); C21.0 Malignant neoplasm of anus, unspecified; J98.11 Atelectasis; Z92.21 Personal history of antineoplastic chemotherapy; Z92.3 Personal history of irradiation; Z79.890 Hormone replacement therapy; I10 Essential (primary) hypertension; F03.90 Unspecified dementia, unspecified severity, without behavioral disturbance, psychotic disturbance, mood disturbance, and anxiety; Z88.1 Allergy status to other antibiotic agents; Z88.0 Allergy status to penicillin; Z88.2 Allergy status to sulfonamides; Z79.82 Long term (current) use of aspirin; E03.9 Hypothyroidism, unspecified; E78.00 Pure hypercholesterolemia, unspecified; Z79.899 Other long term (current) drug therapy; D64.9 Anemia, unspecified; I25.10 Atherosclerotic heart disease of native coronary artery without angina pectoris; H91.90 Unspecified hearing loss, unspecified ear; K57.30 Diverticulosis of large intestine without perforation or abscess without bleeding; Z86.0100 Personal history of colon polyps, unspecified; M40.204 Unspecified kyphosis, thoracic region; M81.0 Age-related osteoporosis without current pathological fracture; N20.0 Calculus of kidney; N28.1 Cyst of kidney, acquired; N83.201 Unspecified ovarian cyst, right side; Z93.3 Colostomy status
CPT/HCPCS: 88305; 70450; 71260; 72197; 74177; 78452; 80048; 80053; 82607; 82728; 82746; 82962; 83540; 83550; 83615; 84439; 84443; 85025; 85027; 85045; 85610; 85730; 87070; 93005; 93017; 93306; 93880; 96360; 97163; 97167; 99285; A9500; A9575; G0123; J2785; Q9967